=== PATIENT | female | born 1980 | race Caucasian/White ===

== ENCOUNTER 2016-09-16 20:19 | Emergency (ER) | payer MEDICAID, OTHER, SELFPAY ==
[~2016-09-16] VITALS: Ht 167.6 cm; Wt 70.2 kg
[2016-09-16] MEDS ORDERED: SERT100T5 PO (20:35)
[2016-09-16] MEDS ORDERED: BCP (20:35)
[2016-09-16 20:53] VITALS: BP 112/70
[2016-09-16] MEDS ORDERED: CIPROFLOXACIN 500 MG TABLET ONE (21:20)
[2016-09-16] MEDS ORDERED: PHENAZOPYRIDINE 200 MG TABLET ONE (21:20)
[2016-09-16] MEDS ORDERED: CIPROFLOXACIN 500 MG TABLET PO ONE (21:30)
[2016-09-16] MEDS ORDERED: PHENAZOPYRIDINE 200 MG TABLET PO ONE (21:30)
== END 2016-09-16 21:32 | disposition home or self-care (01) ==
LOC: ED 21:23
DX: N76.0 Acute vaginitis (principal)
CPT/HCPCS: 81001; 99283